=== PATIENT | male | born 1970 | race Two or more races ===

== ENCOUNTER 2016-10-16 21:00 | Emergency (ER) | payer MEDICAID ==
[~2016-10-16] VITALS: Ht 177.8 cm; Wt 113.4 kg
[2016-10-16 22:25] VITALS: BP 138/84
== END 2016-10-16 22:26 | disposition home or self-care (01) ==
LOC: ER 21:04
DX: S93.402A Sprain of unspecified ligament of left ankle, initial encounter (principal); F17.200 Nicotine dependence, unspecified, uncomplicated; I10 Essential (primary) hypertension; X58.XXXA Exposure to other specified factors, initial encounter; Y93.89 Activity, other specified; Y92.89 Other specified places as the place of occurrence of the external cause; Y99.9 Unspecified external cause status
CPT/HCPCS: 29515; 73610; 73630; 99284; A4606; Z7610

== ENCOUNTER 2023-09-26 19:36 | Emergency (ER) | payer OTHER ==
[~2023-09-26] VITALS: Ht 177.8 cm; Wt 102.1 kg
[2023-09-26 19:55] VITALS: BP 191/117; TEMP 98.5; O2SAT 98
== END 2023-09-26 20:27 | disposition home or self-care (01) ==
LOC: ER 19:41
DX: T16.2XXA Foreign body in left ear, initial encounter (principal); I10 Essential (primary) hypertension; Z88.8 Allergy status to other drugs, medicaments and biological substances; F17.200 Nicotine dependence, unspecified, uncomplicated; W44.8XXA Other foreign body entering into or through a natural orifice, initial encounter; Y93.89 Activity, other specified; Y92.89 Other specified places as the place of occurrence of the external cause; Y99.8 Other external cause status